=== PATIENT | female | born 1965 | race Caucasian/White ===

== ENCOUNTER → 2022-12-07 | Outpatient (CLI) | payer OTHER ==
--- NOTE | 2022-12-07 15:33 | XR ---
EXAMINATION TYPE: XR lumbosacral spine min 4V DATE OF EXAM: 12/07/2022 3:00 PM INDICATION: Patient age:Female; 57 years old; Reason for study: [id number] LUMBAR DDD; [facility]. COMPARISON: None TECHNIQUE: Frontal, lateral , bilateral oblique and coned in L5-S1 lateral views of the spine. FINDINGS: No evidence of any acute osseous pathology. No evidence of loss of vertebral body height i s seen. There is normal alignment of the lumbar vertebral bodies. Multilevel degenerative disc diseas e with disc and, endplate sclerosis, vacuum disc disease, and anterior osteophytosis. This is most pr onounced at L5-S1. Multilevel facet arthropathy. Mild to moderate neural foraminal stenosis bilateral ly at L5-S1. Partial visualization of left hip prosthesis. Vascular sclerosis. IMPRESSION: 1. No acute process. 2. Moderate multilevel degenerative disease most pronounced at L5-S1.
== END | disposition home or self-care (01) ==
LOC: RADXRYALE 14:43
PROVIDERS: ATTEND Physical Medicine & Rehabilitation
DX: M51.36 Other intervertebral disc degeneration, lumbar region (principal); M51.37 Other intervertebral disc degeneration, lumbosacral region
CPT/HCPCS: 72110

== ENCOUNTER → 2023-10-06 | Outpatient (CLI) | payer OTHER ==
--- NOTE | 2023-10-06 16:27 | US ---
EXAMINATION TYPE: US arterial LE multi level DATE OF EXAM: 10/06/2023 10:36 AM CLINICAL INDICATION: Female, 58 years old with history of M79.662 PAIN LEFT LEG M79.661 PAIN RIGHT LE G; bilat leg pain, weakness, difficulty walking, patient has ipk on the right History of: Smoker: current Hypertension: y Diabetic: y Hyperlipidemia: y TIA/CVA: n Previous Vascular Surgery: n CAD: n MA: n Vascular Ulcers: n Claudication: y Gangrene: n Doppler Waveforms: Right: Monophasic - sounded calcified at ankle Left: Monophasic - sounded calcified at ankle Right Brachial Pressure: 139 Left Brachial Pressure: 142 Ankle-Brachial Indices: Right: 0.2 Left: 0.5 Toe Brachial Indices: Right: 0.0 Left: 0.3 IMPRESSION: Severe bilateral peripheral vascular disease.
== END | disposition home or self-care (01) ==
LOC: RADUSWWP 09:52
PROVIDERS: ATTEND Family Medicine
DX: I73.9 Peripheral vascular disease, unspecified (principal); M79.662 Pain in left lower leg; M79.661 Pain in right lower leg; E11.69 Type 2 diabetes mellitus with other specified complication; I10 Essential (primary) hypertension; E78.5 Hyperlipidemia, unspecified; F17.210 Nicotine dependence, cigarettes, uncomplicated; R53.1 Weakness; R26.2 Difficulty in walking, not elsewhere classified
CPT/HCPCS: 93923

== ENCOUNTER 2023-11-25 05:46 | Day surgery (SDC) | payer OTHER ==
[2023-11-25] MEDS ORDERED: ZOLPIDEM 5 MG TAB PO PRN (05:55)
[2023-11-25] MEDS ORDERED: HEPARIN SODIUM,PORCINE (1 ML) 2,500 UNIT in SODIUM CHLORIDE 0.9% 250 ML IRRIGATION PRN (05:55)
[2023-11-25] MEDS ORDERED: ALPRAZolam 0.25 MG TAB PO PRN (05:55)
[2023-11-25] MEDS ORDERED: EMPTY BAG 1 BAG with SODIUM CHLORIDE 0.9% 1,000 ML IV SCH (05:55)
[2023-11-25] MEDS ORDERED: HEPARIN SODIUM,PORCINE 10,000 UNIT in SODIUM CHLORIDE 0.9% 1,000 ML IRRIGATION PRN (05:55)
[2023-11-25] MEDS ORDERED: ASPIRIN 325 MG TAB PO PRN (05:55)
[2023-11-25 06:26] LABS: Glucose,Whole Blood 133 mg/dL (70-110)
[2023-11-25] MEDS: SODIUM CHLORIDE 0.9% 1,000 ML IV ONE (06:35)
[2023-11-25 06:41] LABS: Basophils # (A) 0.1 k/uL (0-0.2); Basophils % (A) 1 %; Eosinophils # (A) 0.8 k/uL (0-0.7); Eosinophils % (A) 7 %; HCT 44.8 % (34.0-46.0); HGB 14.1 gm/dL (11.4-16.0); Lymphocytes # (A) 2.2 k/uL (1.0-4.8); Lymphocytes % (A) 21 %; MCH 32.1 pg (25.0-35.0); MCHC 31.5 g/dL (31.0-37.0); MCV 102.1 fL (80.0-100.0); Macrocytosis Slight; Mean Platelet Volume 8.2; Monocytes # (A) 0.4 k/uL (0-1.0); Monocytes % (A) 4 %; Neutrophils # (A) 7.2 k/uL (1.3-7.7); Neutrophils % (A) 66 %; Platelet Count 316 k/uL (150-450); RBC 4.38 m/uL (3.80-5.40); RDW 13.1 % (11.5-15.5); WBC 10.8 k/uL (3.8-10.6)
[2023-11-25] MEDS: lisinopriL 20 MG TAB PO STA (06:49)
[2023-11-25 06:54] VITALS: RESP 18; TEMP 97.8
[2023-11-25 07:05] LABS: African American GFR (CKD) >90 (>60 ml/min/1.73 sqM); Anion Gap 10 mmol/L; Blood Urea Nitrogen 16 mg/dL (7-17); Calcium 10.6 mg/dL (8.4-10.2); Carbon Dioxide 23 mmol/L (22-30); Chloride 108 mmol/L (98-107); Glucose 133 mg/dL (74-99); Non-African American GFR(CKD) >90 (>60 ml/min/1.73 sqM); Potassium 4.6 mmol/L (3.5-5.1); Sodium 141 mmol/L (137-145)
[2023-11-25] MEDS ORDERED: HEPARIN SODIUM 1,000 UN/ML (10ML VL) ONE (07:26)
[2023-11-25] MEDS ORDERED: VERAPAMIL 2.5 MG/ML 2 ML AMP ONE (07:26)
[2023-11-25] MEDS ORDERED: fentaNYL (PF) 50 MCG/ML 2 ML AMP ONE (07:36)
[2023-11-25] MEDS ORDERED: LIDOCAINE 1% INJ 10MG/ML (20 ML MDV) ONE (07:36)
[2023-11-25] MEDS: MIDAZOLAM 2 MG/2 ML VIAL IVP ONE (07:43)
[2023-11-25] MEDS: fentaNYL (PF) 50 MCG/ML 2 ML AMP IVP ONE (07:43)
[2023-11-25] MEDS: LIDOCAINE 1% INJ 10MG/ML (20 ML MDV) SQ ONE (07:45)
[2023-11-25] MEDS: VERAPAMIL SYRINGE (5 MG/10 ML) INTRAARTER ONE (07:47)
[2023-11-25] MEDS: IOPAMIDOL-370 100ML BTL INJ ONE (08:03)
--- NOTE | 2023-11-25 09:06 | P.OP ---
Date of Procedure: 11/25/23 Description of Procedure: preoperative diagnosis: Bhakti 5 peripheral arterial disease right lower extremity Postoperative diagnosis: Same Procedure: Ultrasound-guided left radial artery access Placement of catheter in infrarenal abdominal aorta, selective second order, from radial approach Aortogram with bilateral lower extremity runoffs Moderate conscious sedation with personal monitoring certified RN administration and personal hemodynamic monitoring for 20 minutes Surgeon: Uyen Harrell D.O. EBL: Less than 5 cc IV fluids: See records Urine output: Not measured Drains: None Complications: None immediately apparent Condition: Stable to recovery Operative indication and findings: Patient is a 58-year-old female with evidence of right lower extremity wound that is nonhealing and peripheral vascular disease who was recommended to undergo an aortogram with potential revascularization if amenable. Risks and benefits were discussed. She seemingly understood and was willing to proceed. Procedure in detail: Patient was taken to the special suite and placed in supine position. The left upper extremity was prepped and draped in usual sterile fashion. A preprocedural timeout was performed, all parties were in agreement. Using the ultrasound, the left radial artery was identified. The skin overlying was anesthetized with 1% lidocaine plain. The artery was patent without significant calcific disease and a permanent image was stored. Under direct visualization, the artery was accessed and Seldinger technique was used to place a 5 slender sheath. Catheters and wires were then used to selectively place a catheter in the descending thoracic aorta and down into the abdominal aorta. Neurogram was performed. Catheter was then advanced to the level of the previous aortic endograft. After satisfactory images, catheters and wires were removed. The sheath was removed and a TR band was placed. Angiographic images. The aorta appeared normal in course and caliber. Visualized portions of the superior mesenteric, celiac and renal vessels appear patent. The bilateral common iliac arteries show some evidence of disease proximally, mild to moderate. There is no significant disease to the internal or external iliac vessels. On the right, the common femoral appears patent w ithout significant disease. The profunda appears patent without significant disease. The superficial femoral artery occludes shortly after takeoff, no significant nubbin identified. On the left, the common femoral is mildly obscured by a prosthetic however flow is brisk. The superficial femoral artery occludes shortly after takeoff. The provide it appears patent without significant disease. There are multiple significant collateral channels through the bilateral thighs. On the right there is reconstitution of the popliteal artery at the level of the knee joint. The distal popliteal appears patent without significant disease. The tibioperoneal trunk appears patent, the anterior tibial artery appears to fill via collateral flow. No visualized posterior tibial artery. The peroneal artery appears patent through the ankle. There is potentially reconstitution of the posterior tibial at the level of the ankle. On the left, there appears to be reconstitution of the proximal popliteal artery at the level of the adductor canal via significant collateral flow. The popliteal artery appears patent without significant disease. There are multiple collaterals again through the lower extremity. Although difficult to visualize the anterior tibial artery does appear patent but diminutive and shortly occludes thereafter. The peroneal artery is patent but then appears to occlude. Collateral channels still likely the peroneal vessel at the ankle. There is flow visualized through the digits via collateral channels. Plan - Discharge Summary Discharge Rx Participant: Yes New Discharge Prescriptions: No Action Glimepiride [Amaryl] 2 mg PO AC-BRKFST Cholecalciferol [Vitamin D3 (25 Mcg = 1000 Iu)] 25 mcg PO DAILY oxyCODONE-APAP 10-325MG [Percocet 10-325 mg] 1 tab PO Q6HR PRN PRN Reason: Pain metFORMIN HCL [Glucophage] 1,000 mg PO DAILY L.acidoph,Paracasei, B.lactis [Probiotic] 1 each PO DAILY lisinopriL [Zestril] 20 mg PO DAILY Gabapentin [Neurontin] 800 mg PO BID Celecoxib [CeleBREX] 200 mg PO DAILY Atorvastatin [Lipitor] 80 mg PO DAILY Ascorbic Acid [Vitamin C] 1,000 mg PO DAILY Discharge Medication List Ascorbic Acid [Vitamin C] 1,000 mg PO DAILY 11/22/23 [History] Atorvastatin [Lipitor] 80 mg PO DAILY 11/22/23 [History] Celecoxib [CeleBREX] 200 mg PO DAILY 11/22/23 [History] Cholecalciferol [Vitamin D3 (25 Mcg = 1000 Iu)] 25 mcg PO DAILY 11/22/23 [History] Gabapentin [Neurontin] 800 mg PO BID 11/22/23 [History] Glimepiride [Amaryl] 2 mg PO AC-BRKFST 11/22/23 [History] L.acidoph,Paracasei, B.lactis [Probiotic] 1 each PO DAILY 11/22/23 [History] lisinopriL [Zestril] 20 mg PO DAILY 11/22/23 [History] metFORMIN HCL [Glucophage] 1,000 mg PO DAILY 11/22/23 [History] oxyCODONE-APAP 10-325MG [Percocet 10-325 mg] 1 tab PO Q6HR PRN 11/22/23 [History] Follow up Appointment(s)/Referral(s): Uyen Harrell DO [STAFF PHYSICIAN] - 1 Week Activity/Diet/Wound Care/Special Instructions: Resume regular activity as tolerated. Be gentle with left upper extremity access site. No heavy lifting. Resume regular medications. Resume regular diet. Discharge Disposition: HOME SELF-CARE
[2023-11-25 10:20] VITALS: PULSE 71
[2023-11-25 11:00] VITALS: BP 172/80
--- NOTE | 2023-11-26 11:55 | IR ---
EXAMINATION TYPE: IR angio abdominal w runoff Intraoperative/procedural fluoroscopic services were pr ovided. CLINICAL INDICATION:Female, 58 years old with history of BILATERAL LEG PAIN; , [facility] Total fluoroscopy time is 2.4 min. DAP: 25.3 uG[employer]2 Please see the operative/procedural note for further details.
== END 2023-11-25 11:57 | disposition home or self-care (01) ==
LOC: CATHCVL 05:46
PROVIDERS: ATTEND Surgery
DX: I73.9 Peripheral vascular disease, unspecified (principal); I10 Essential (primary) hypertension; E11.9 Type 2 diabetes mellitus without complications; Z79.84 Long term (current) use of oral hypoglycemic drugs; Z79.899 Other long term (current) drug therapy; Z88.2 Allergy status to sulfonamides; Z88.6 Allergy status to analgesic agent
CPT/HCPCS: 36200; 75625; 75716; 80048; 85025; C1769 ×3; C1894; J2250; J2001; J3010; Q9967

== ENCOUNTER → 2024-02-07 | Outpatient (CLI) | payer OTHER ==
--- NOTE | 2024-02-07 10:29 | US ---
EXAMINATION TYPE: US venous doppler duplex LE RT DATE OF EXAM: 02/07/2024 9:52 AM COMPARISON: NONE CLINICAL INDICATION: Female, 58 years old with history of R22.41 LOCALIZED SWELLING, MASS AND LUMP, R IGHT LO; Triple bypass right leg 02/04/2024; Swelling and redness since; Smoker; HTN; DM; Weaping bli sters SIDE PERFORMED: Right TECHNIQUE: The lower extremity deep venous system is examined utilizing real time linear array sonog ricardo with graded compression, doppler sonography and color-flow sonography. VESSELS IMAGED: Common Femoral Vein Deep Femoral Vein Greater Saphenous Vein * Femoral Vein Popliteal Vein Small Saphenous Vein * Proximal Calf Veins (* superficial vessels) Right Leg: Negative for DVT Left Leg: NA ? Clot surrounding proximal arterial bypass in the upper leg; Abscess seen posterior to proximal calf surgical incision. IMPRESSION: 1. No evidence for deep vein thrombosis. 2. Arterial clot within the arterial vasculature near the bypass. 3. Subcutaneous fluid collection near the incision site possibly provided history of abscess in the setting of redness and swelling
== END | disposition home or self-care (01) ==
LOC: RADUSWWP 09:09
PROVIDERS: ATTEND Surgery
DX: R22.41 Localized swelling, mass and lump, right lower limb (principal); I10 Essential (primary) hypertension; E11.9 Type 2 diabetes mellitus without complications; F17.200 Nicotine dependence, unspecified, uncomplicated

== ENCOUNTER 2024-03-06 11:26 | Emergency (ER) | payer OTHER ==
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
[2024-03-06 12:05] LABS: Basophils # (A) 0.1 k/uL (0-0.2); Basophils % (A) 1 %; Eosinophils # (A) 0.6 k/uL (0-0.7); Eosinophils % (A) 8 %; HCT 40.8 % (34.0-46.0); HGB 13.1 gm/dL (11.4-16.0); Lymphocytes % (A) 27 %; MCHC 32.2 g/dL (31.0-37.0); MCV 102.6 fL (80.0-100.0); Macrocytosis Slight; Mean Platelet Volume 7.9; Monocytes # (A) 0.4 k/uL (0-1.0); Monocytes % (A) 5 %; Neutrophils # (A) 4.1 k/uL (1.3-7.7); Neutrophils % (A) 56 %; Platelet Count 378 k/uL (150-450); RBC 3.98 m/uL (3.80-5.40); RDW 12.5 % (11.5-15.5); WBC 7.3 k/uL (3.8-10.6)
[2024-03-06 12:19] LABS: ALT 24 U/L (4-34); AST 27 U/L (14-36); African American GFR (CKD) >90 (>60 ml/min/1.73 sqM); Albumin 4.3 g/dL (3.5-5.0); Alkaline Phosphatase 69 U/L (38-126); Anion Gap 8 mmol/L; Blood Urea Nitrogen 13 mg/dL (7-17); Calcium 9.9 mg/dL (8.4-10.2); Carbon Dioxide 26 mmol/L (22-30); Chloride 105 mmol/L (98-107); Glucose 130 mg/dL (74-99); Non-African American GFR(CKD) >90 (>60 ml/min/1.73 sqM); Potassium 5.4 mmol/L (3.5-5.1); Sodium 139 mmol/L (137-145); Total Bilirubin 0.5 mg/dL (0.2-1.3); Total Protein 7.4 g/dL (6.3-8.2)
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
[2024-03-06 12:59] VITALS: BP 106/76; PULSE 63; RESP 18; TEMP 98.4
== END 2024-03-06 12:57 | disposition home or self-care (01) ==
LOC: EC 11:26 → SUPCPDRO 11:26 → EC 12:57
DX: T81.31XA Disruption of external operation (surgical) wound, not elsewhere classified, initial encounter (principal); F17.200 Nicotine dependence, unspecified, uncomplicated; Z88.2 Allergy status to sulfonamides; Z88.8 Allergy status to other drugs, medicaments and biological substances
CPT/HCPCS: 36415; 80053; 83605; 85025; 99284